=== PATIENT | male | born 1940 | race African-American/Black ===

== ENCOUNTER 2024-02-01 11:45 | Emergency (ER) | payer OTHER ==
[~2024-02-01] VITALS: Ht 182.9 cm; Wt 69.0 kg
[2024-02-01 14:18] LABS: Basophils # (auto) 0 10 ^3/uL (0-0.2); Eosinophils # (auto) 0.1 10 ^3/uL (0-0.8); Eosinophils % (auto) 2.2 % (0.0-7.0); Lymphocytes # (auto) 1.3 10 ^3/uL (0.4-5.4); Neutrophils # (auto) 3.5 10 ^3/uL (1.6-8.6)
[2024-02-01 14:20] LABS: Basophils % (auto) 0.4 % (0.0-2.0); Hematocrit 50.9 % (41.0-53.0); Hemoglobin 16.2 g/dL (13.5-17.5); Lymphocytes % (auto) 24.3 % (10.0-50.0); Mean Corpuscular Hgb Conc. 31.9 g/dL (32.0-36.0); Mean Corpuscular Volume 87.8 fL (80.0-100.0); Monocytes # (auto) 0.4 10 ^3/uL (0-1.3); Monocytes % (auto) 8.2 % (0.0-12.0); Neutrophils % (auto) 64.9 % (37.0-80.0); Nucleated Red Blood Cells % 0.1 %; Red Cell Distribution Width 15.4 % (11.8-14.3); White Blood Cell 5.4 10^3/uL (4.4-10.8)
[2024-02-01 14:26] VITALS: BP 147/94; PULSE 66; RESP 16; O2SAT 100
[2024-02-01 14:32] LABS: Alanine Aminotransferase 17 U/L (7-40); Alkaline Phosphatase 64 U/L (46-116); Calcium 9.3 mg/dL (8.5-10.1); Carbon Dioxide 24 mmol/L (20-30); Chloride 107 mmol/L (98-107); Glucose 86 mg/dL (74-106)
[2024-02-01 14:33] LABS: Albumin 3.7 g/dL (3.2-4.8); Anion Gap 7 (5-15); Aspartate Aminotransferase 24 U/L (13-40); BUN/Creatinine Ratio 14.7 (10.0-20.0); Bilirubin, Total 1.4 mg/dL (0.2-1.0); Blood Urea Nitrogen 10 mg/dL (9-23); Potassium 3.7 mmol/L (3.5-5.1); Sodium 138 mmol/L (136-145); Total Protein 7.2 g/dL (5.7-8.2)
== END 2024-02-02 00:32 | disposition left against medical advice (07) ==
LOC: ER 11:45 → EDBD 11:45 → ER 02-02 00:32
DX: R53.1 Weakness (principal); I10 Essential (primary) hypertension; Z88.6 Allergy status to analgesic agent
CPT/HCPCS: 36415; 71046; 80053; 84484; 85025